=== PATIENT | female | born 1950 | race Caucasian/White ===

== ENCOUNTER 2022-03-20 13:58 | Day surgery (SDC) | payer MEDICARE, BC ==
[~2022-03-20] VITALS: Ht 175.3 cm; Wt 90.5 kg
[~2022-03-20 13:58] MED LIST: CEPHALEXIN500 M1 PO; ERYC250 MG PO; GLUCOPHAGE500 MG/TAB PO; PYRIDIUM 100MG100 MG PO; TIROSINT25 MCG PO
[2022-03-20 15:14] VITALS: BP 137/65; PULSE 56; TEMP 97.2
[2022-03-20] MEDS ORDERED: PRALUENT P150 MG/1 M SQ (15:19)
[2022-03-20] MEDS ORDERED: NORVASC 5MG5 MG/TAB PO (15:20)
[2022-03-20] MEDS ORDERED: GLUCOSAMINE & C1 CA2 PO (15:20)
[2022-03-20] MEDS ORDERED: ASPIRIN 81M81 MG/TA2 PO (15:21)
[2022-03-20] MEDS ORDERED: SYNTHROID0.088 MG/T PO (15:22)
[2022-03-20 15:23] LABS: BASO % 0.7 % (0.0-2.0); EOS # 0.2 K/mm3 (0.0-0.7); EOS % 2.6 % (0.0-4.0); GRAN # 3.4 K/mm3 (1.4-6.5); GRAN % 58.8 % (42.2-75.2); HEMATOCRIT 44.9 % (37.0-47.0); HEMOGLOBIN 14.7 g/dl (12.5-16.0); LYMPH # 1.7 K/mm3 (1.2-3.4); LYMPH % 28.9 % (20.0-51.0); MEAN CELL VOLUME 86 fl (80.0-100.0); MEAN CORPUSCULAR HEMOGLOBIN 28 pg (27-31); MEAN CORPUSCULAR HGB CONC 33 g/dl (33.0-37.0); MEAN PLATELET VOLUME 10.7 fl (7.4-10.4); MONO # 0.5 K/mm3 (0.1-0.6); MONO % 8.8 % (1.7-9.3); PLATELET COUNT 196 K/mm3 (130-400); RED BLOOD COUNT 5.22 M/mm3 (4.10-5.30); REDCELL DISTRIBUTION WIDTH-CV 12.9 % (11.5-14.5)
[2022-03-20] MEDS ORDERED: GLUCOPHAGE500 MG/TAB PO (15:24)
[2022-03-20 18:23] VITALS: TEMP 98.2
[2022-03-20 18:33] VITALS: BP 135/63; PULSE 48
--- NOTE | 2022-03-20 19:30 | NUR ---
PT EATING MEAL WITHOUT DIFFICULTY. IV DC'D. PT UP GETTING DRESSED.
--- NOTE | 2022-03-20 20:39 | NUR ---
PT GIVEN DISCHARGE INSTRUCTIONS AND VERBALIZES UNDERSTANDING. PT DISCHARGED PER WC TO ER EXIT TO . NO FURTHER QUESTIONS.
== END 2022-03-20 20:00 ==
LOC: SDCO 13:58 → SURG 18:14 → SDCO 20:00
PROVIDERS: Registered Nurse
DX: N20.1 Calculus of ureter (principal)
CPT/HCPCS: OP; J0690; J1100; J2405; J2704; J3010; J7120